=== PATIENT | female | born 1985 | race Caucasian/White ===

== ENCOUNTER 2016-10-23 17:41 | Emergency (ER) | payer OTHER ==
[~2016-10-23] VITALS: Ht 162.6 cm; Wt 59.0 kg
[2016-10-23 20:27] VITALS: BP 127/71
== END 2016-10-23 20:30 | disposition home or self-care (01) ==
LOC: EMS 17:52
DX: H10.89 Other conjunctivitis (principal)
CPT/HCPCS: 99283

== ENCOUNTER 2017-07-31 11:36 | Emergency (ER) | payer OTHER ==
[~2017-07-31] VITALS: Ht 162.6 cm; Wt 56.8 kg
[2017-07-31] MEDS ORDERED: KETOROLAC TROMETHAMINE 30 MG/ML VIAL IM ONE (12:00)
[2017-07-31 12:41] LABS: INFLUENZA TYPE A NEGATIVE FOR TYPE A (NEGATIVE); INFLUENZA TYPE B POSITIVE FOR TYPE B (NEGATIVE)
[2017-07-31] MEDS ORDERED: ONDANSETRON HCL 4 MG TABLET PO ONE (13:00)
[2017-07-31 13:35] VITALS: BP 119/78
== END 2017-07-31 14:05 | disposition home or self-care (01) ==
LOC: EMS 11:38
DX: J11.1 Influenza due to unidentified influenza virus with other respiratory manifestations (principal)
CPT/HCPCS: 81002; 81025; 87804; 96372; 99284; J1885; Q0162